=== PATIENT | male | born 1955 | race Hispanic/Latino ===

== ENCOUNTER 2020-08-15 13:09 | Emergency (ER) | payer OTHER ==
[2020-08-15] MEDS ORDERED: Acetaminophen 500 MG TAB ONE (14:43)
[2020-08-15] MEDS ORDERED: HYDROcodone/Acetaminophen 5/325 mg Tablet ONE (17:18)
[2020-08-15] MEDS ORDERED: Lidocaine 1% (PF) 30 ML VIAL ONE (17:58)
[2020-08-15] MEDS ORDERED: Bacitracin 1 PK ONE ×2 (18:45→18:46)
== END 2020-08-15 19:09 | disposition home or self-care (01) ==
LOC: ERS 13:09
DX: S02.32XA Fracture of orbital floor, left side, initial encounter for closed fracture (principal); S02.832A Fracture of medial orbital wall, left side, initial encounter for closed fracture; J45.909 Unspecified asthma, uncomplicated; E78.5 Hyperlipidemia, unspecified; E78.00 Pure hypercholesterolemia, unspecified; Z79.82 Long term (current) use of aspirin; Z79.899 Other long term (current) drug therapy; W22.8XXA Striking against or struck by other objects, initial encounter
CPT/HCPCS: 12013; 70450; 70486; 72125; J2001